=== PATIENT | female | born 2000 | race Caucasian/White ===

== ENCOUNTER 2022-06-12 19:49 | Emergency (ER) | payer OTHER | END 2022-06-12 23:15 | disposition home or self-care (01) | LOC: MADERS 19:49 | DX: M67.431 Ganglion, right wrist (principal) ==

== ENCOUNTER 2022-06-19 00:55 | Emergency (ER) | payer OTHER | END 2022-06-19 02:41 | disposition home or self-care (01) | LOC: MADERS 00:55 | DX: J10.1 Influenza due to other identified influenza virus with other respiratory manifestations (principal); F17.290 Nicotine dependence, other tobacco product, uncomplicated | CPT/HCPCS: 87804; 99283 ==